=== PATIENT | male | born 1960 | race Asian ===

== ENCOUNTER 2018-04-18 17:58 | Inpatient (IN) | payer MEDICAID ==
[~2018-04-18] VITALS: Ht 170.2 cm; Wt 87.7 kg
[~2018-04-18 17:58] MED LIST: ASPI-1158 PO; ATOR80TA PO; CLOP75TA16 PO; DOCU-138 PO; GABA-531 PO; LOSA50TA3 PO; METO25TA6 PO; OMEP20CA10 PO; ZOLP10TA2 PO
[2018-04-18] MEDS ORDERED: ASPIRIN 325MG EC TABLET PO ONE (18:30)
[2018-04-18 19:38] LABS: BASOPHILS % 0.6 % (0.0-2.0); EOSINOPHILS % 6.8 % (0.0-5.0); HEMATOCRIT. 51.1 % (42.0-52.0); HEMOGLOBIN. 17.1 g/dL (14.0-18.0); LYMPHOCYTES % 19.3 % (20.0-50.0); MEAN CORPUSCULAR HEMOGLOBIN 29.1 pg (28.0-32.0); MEAN CORPUSCULAR VOLUME 86.7 fL (80.0-94.0); MONOCYTES % 6.1 % (2.0-8.0); NEUTROPHILS % 67.2 % (40.0-76.0); PLATELET 204 x1000/uL (130-400); RED BLOOD CELL COUNT 5.89 mill/uL (4.7-6.1)
[2018-04-18 19:40] LABS: CHLORIDE 108 mEq/L (98-107)
[2018-04-18] MEDS ORDERED: MORPHINE SULFATE 4 MG/ML CPJ (NOT FOR IM USE) IV ONE (22:15)
[2018-04-18] MEDS ORDERED: AMLO5TAB88 MT (23:32)
[2018-04-18] MEDS ORDERED: ATEN-42 MT (23:33)
[2018-04-18] MEDS ORDERED: NITR0.4T49 SL (23:35)
[2018-04-18 23:51] VITALS: BP 136/98
[2018-04-19] VITALS (7 sets, daily range): BP systolic 101–140; BP diastolic 64–98
[2018-04-19] MEDS ORDERED: DOCUSATE SODIUM 100MG CAPSULE PO PRN (00:15)
[2018-04-19] MEDS ORDERED: MAGNESIUM/ALUMINUM HYDROXIDE/SIMETHICONE 30ML UDC PO PRN (00:15)
[2018-04-19] MEDS ORDERED: CLONIDINE 0.1MG TABLET PO PRN (00:15)
[2018-04-19] MEDS ORDERED: HYDROCODONE/ACETAMINOPHEN 5/325MG TABLET PO PRN (00:15)
[2018-04-19] MEDS ORDERED: ONDANSETRON HCL 4MG/2ML INJ IV PRN (00:15)
[2018-04-19] MEDS: ACETAMINOPHEN 325MG TABLET PO PRN ×2 (00:36→09:55)
[2018-04-19] MEDS: IPRATROPIUM/ALBUTEROL 0.5-3(2.5)MG/3ML NEB INH PRN (01:08)
[2018-04-19 05:49] LABS: HEMATOCRIT. 45.3 % (42.0-52.0); HEMOGLOBIN. 15.3 g/dL (14.0-18.0); LYMPHOCYTES % 30.6 % (20.0-50.0); MEAN CORPUSCULAR HEMOGLOBIN 29.2 pg (28.0-32.0); MEAN CORPUSCULAR VOLUME 86.5 fL (80.0-94.0); MEAN PLATELET VOLUME 9.7 fl (7.4-10.4); MONOCYTES % 9.3 % (2.0-8.0); NEUTROPHILS % 50.1 % (40.0-76.0); PLATELET 183 x1000/uL (130-400); RED BLOOD CELL COUNT 5.24 mill/uL (4.7-6.1)
[2018-04-19 06:36] LABS: CHLORIDE 108 mEq/L (98-107)
[2018-04-19 06:44] LABS: LDL CHOLESTEROL 94 mg/dL (5-100)
[2018-04-19 06:46] LABS: CREATINE KINASE 167 IU/L (39-308); HDL CHOLESTEROL 31 mg/dL (40-59)
[2018-04-19 06:49] LABS: CREATINE KINASE MB FRACTION 1.7 ng/mL (0.5-3.6)
[2018-04-19 08:46] LABS: *BARBITURATES SCREEN URINE NEGATIVE (NEGATIVE)
[2018-04-19 08:47] LABS: *AMPHETAMINES SCREEN URINE NEGATIVE (NEGATIVE); *BENZODIAZEPINES SCREEN URINE NEGATIVE (NEGATIVE); *COCAINE SCREEN URINE NEGATIVE (NEGATIVE); CANNABINOID URINE SCREEN NEGATIVE (NEGATIVE); METHADONE URINE SCREEN NEGATIVE (NEGATIVE); OPIATES URINE SCREEN NEGATIVE (NEGATIVE); PHENCYCLIDINE URINE SCREEN NEGATIVE (NEGATIVE)
[2018-04-19] MEDS: ASPIRIN 81MG EC TABLET PO SCH (09:55)
[2018-04-19] MEDS: ENOXAPARIN 40MG/0.4ML SYR SUBCUT SCH (09:56)
[2018-04-19] MEDS ORDERED: REGADENOSON 0.4 MG/5 ML IV NR (10:30)
[2018-04-19] MEDS: MORPHINE SULFATE 4 MG/ML CPJ (NOT FOR IM USE) IV PRN ×2 (11:23→22:09)
[2018-04-19] MEDS ORDERED: REGADENOSON 0.4 MG/5 ML IV ONE (11:43)
[2018-04-19] MEDS ORDERED: NITROGLYCERIN 0.4MG TABLET SL SL PRN (12:45)
[2018-04-19] MEDS: CLOPIDOGREL 75MG TABLET PO SCH (13:26)
[2018-04-19] MEDS: NICOTINE 14MG PATCH TD SCH (13:26)
[2018-04-19] MEDS: OMEPRAZOLE 20MG CAPSULE EXTENDED RELEASE PO SCH ×2 (13:26→16:03)
[2018-04-19] MEDS ORDERED: DIATR MEGLU/DIATRIZOATE SOLN 30ML PO SCH (13:45)
[2018-04-19 16:51] LABS: CREATINE KINASE 146 IU/L (39-308)
[2018-04-19 16:54] LABS: CREATINE KINASE MB FRACTION 1.8 ng/mL (0.5-3.6)
[2018-04-19] MEDS ORDERED: DIATR MEGLU/DIATRIZOATE SOLN 120ML ONE (17:52)
[2018-04-19] MEDS: HEMORRHOIDAL SUPP PR SCH (21:15)
[2018-04-19] MEDS: ATORVASTATIN CALCIUM 40MG TABLET PO SCH (21:15)
[2018-04-19] MEDS ORDERED: IOHEXOL-300 100 ML BOTTLE ONE (21:20)
[2018-04-20] VITALS: BP 116/86
[2018-04-20] MEDS: IPRATROPIUM/ALBUTEROL 0.5-3(2.5)MG/3ML NEB INH PRN (03:46)
[2018-04-20 04:00] VITALS: BP 110/56
[2018-04-20 06:16] LABS: BASOPHILS % 0.5 % (0.0-2.0); EOSINOPHILS % 8.6 % (0.0-5.0); HEMATOCRIT. 45.1 % (42.0-52.0); HEMOGLOBIN. 15.4 g/dL (14.0-18.0); LYMPHOCYTES % 43.4 % (20.0-50.0); MEAN CORPUSCULAR HEMOGLOBIN 29.5 pg (28.0-32.0); MEAN CORPUSCULAR VOLUME 86.5 fL (80.0-94.0); MEAN PLATELET VOLUME 10.2 fl (7.4-10.4); MONOCYTES % 6.4 % (2.0-8.0); NEUTROPHILS % 41.1 % (40.0-76.0); PLATELET 180 x1000/uL (130-400); RED BLOOD CELL COUNT 5.22 mill/uL (4.7-6.1); RED CELL DISTRIBUTION WIDTH 13.8 % (11.6-14.6)
[2018-04-20] MEDS: OMEPRAZOLE 20MG CAPSULE EXTENDED RELEASE PO SCH ×2 (06:28→18:36)
[2018-04-20 06:30] LABS: CHLORIDE 108 mEq/L (98-107)
[2018-04-20 06:44] LABS: PHOSPHORUS 3.2 mg/dL (2.5-4.9)
[2018-04-20 08:00] VITALS: BP 117/88
[2018-04-20] MEDS ORDERED: DOCUSATE SODIUM 250MG CAPSULE PO SCH (09:00)
[2018-04-20] MEDS: ASPIRIN 81MG EC TABLET PO SCH (09:52)
[2018-04-20] MEDS: ENOXAPARIN 40MG/0.4ML SYR SUBCUT SCH (09:52)
[2018-04-20] MEDS: HEMORRHOIDAL SUPP PR SCH ×2 (09:52→20:16)
[2018-04-20] MEDS: CLOPIDOGREL 75MG TABLET PO SCH (09:52)
[2018-04-20] MEDS: NICOTINE 14MG PATCH TD SCH (09:53)
[2018-04-20] MEDS ORDERED: BISACODYL 10MG SUPP PR PRN (11:00)
[2018-04-20] MEDS: DOCUSATE SODIUM 100MG CAPSULE PO SCH ×2 (11:00→18:36)
[2018-04-20 12:00] VITALS: BP 126/87
[2018-04-20] MEDS: MORPHINE SULFATE 4 MG/ML CPJ (NOT FOR IM USE) IV PRN ×2 (14:21→20:16)
[2018-04-20 18:00] VITALS: BP 115/85
[2018-04-20 20:00] VITALS: BP 132/92
[2018-04-20] MEDS: ATORVASTATIN CALCIUM 40MG TABLET PO SCH (20:14)
[2018-04-20] MEDS: HYDROCORTISONE ACETATE 25MG SUPP PR SCH (20:15)
[2018-04-21] VITALS: BP 104/68
[2018-04-21] MEDS: IPRATROPIUM/ALBUTEROL 0.5-3(2.5)MG/3ML NEB HHN PRN ×2 (00:07→12:00)
[2018-04-21] MEDS: MORPHINE SULFATE 4 MG/ML CPJ (NOT FOR IM USE) IV PRN ×2 (02:13→10:59)
[2018-04-21 04:00] VITALS: BP 135/57
[2018-04-21] MEDS: IPRATROPIUM/ALBUTEROL 0.5-3(2.5)MG/3ML NEB INH PRN ×2 (04:44→07:34)
[2018-04-21] MEDS: OMEPRAZOLE 20MG CAPSULE EXTENDED RELEASE PO SCH (06:23)
[2018-04-21 07:18] LABS: BASOPHILS % 0.6 % (0.0-2.0); EOSINOPHILS % 6.4 % (0.0-5.0); HEMATOCRIT. 43.5 % (42.0-52.0); HEMOGLOBIN. 15.1 g/dL (14.0-18.0); LYMPHOCYTES % 22.7 % (20.0-50.0); MEAN CORPUSCULAR HEMOGLOBIN 29.6 pg (28.0-32.0); MEAN CORPUSCULAR VOLUME 85.6 fL (80.0-94.0); MEAN PLATELET VOLUME 9.6 fl (7.4-10.4); MONOCYTES % 6.2 % (2.0-8.0); NEUTROPHILS % 64.1 % (40.0-76.0); PLATELET 171 x1000/uL (130-400); RED BLOOD CELL COUNT 5.09 mill/uL (4.7-6.1); RED CELL DISTRIBUTION WIDTH 13.6 % (11.6-14.6)
[2018-04-21 07:48] LABS: CHLORIDE 108 mEq/L (98-107)
[2018-04-21 07:59] LABS: PHOSPHORUS 2.8 mg/dL (2.5-4.9)
[2018-04-21 08:00] VITALS: BP 108/73
[2018-04-21] MEDS: ASPIRIN 81MG EC TABLET PO SCH (09:42)
[2018-04-21] MEDS: CLOPIDOGREL 75MG TABLET PO SCH (09:42)
[2018-04-21] MEDS: DOCUSATE SODIUM 100MG CAPSULE PO SCH (09:42)
[2018-04-21] MEDS: NICOTINE 14MG PATCH TD SCH (09:43)
[2018-04-21] MEDS: ENOXAPARIN 40MG/0.4ML SYR SUBCUT SCH (09:43)
[2018-04-21] MEDS: HYDROCORTISONE ACETATE 25MG SUPP PR SCH (09:44)
[2018-04-21] MEDS: HEMORRHOIDAL SUPP PR SCH (10:21)
[2018-04-21] MEDS ORDERED: OMEP20CA10 PO (12:39)
[2018-04-21] MEDS ORDERED: CLOP75TA16 PO (12:39)
[2018-04-21] MEDS ORDERED: NICO-681 TD (12:39)
[2018-04-21] MEDS ORDERED: ASPI-1158 PO (12:39)
[2018-04-21] MEDS ORDERED: LIP40 PO (12:39)
[2018-04-21] MEDS ORDERED: [UNRECOGNIZED DRUG - CODE] PR (12:39)
[2018-04-21] MEDS ORDERED: HYDR25SU11 PR (12:39)
[2018-04-21 15:06] VITALS: BP 106/88
== END 2018-04-21 15:59 | disposition home or self-care (01) | DRG 254 ==
LOC: ER 17:58 → 5WST 20:02 → EDBEDREQ 20:04 → ENRESERV 20:09
PROVIDERS: ADMIT Internal Medicine; ATTEND Internal Medicine
DX: K62.89 Other specified diseases of anus and rectum (principal); I51.0 Cardiac septal defect, acquired; R13.10 Dysphagia, unspecified; I25.10 Atherosclerotic heart disease of native coronary artery without angina pectoris; E78.5 Hyperlipidemia, unspecified; I10 Essential (primary) hypertension; K21.9 Gastro-esophageal reflux disease without esophagitis; J44.9 Chronic obstructive pulmonary disease, unspecified; F17.210 Nicotine dependence, cigarettes, uncomplicated; G47.00 Insomnia, unspecified; K59.00 Constipation, unspecified; K80.20 Calculus of gallbladder without cholecystitis without obstruction; Z82.49 Family history of ischemic heart disease and other diseases of the circulatory system; Z90.49 Acquired absence of other specified parts of digestive tract; Z95.5 Presence of coronary angioplasty implant and graft; Z98.1 Arthrodesis status; Z79.82 Long term (current) use of aspirin; Z79.899 Other long term (current) drug therapy; Z79.02 Long term (current) use of antithrombotics/antiplatelets; Z88.8 Allergy status to other drugs, medicaments and biological substances; Z71.6 Tobacco abuse counseling
CPT/HCPCS: 36415; 71045; 74177; 78452; 80048; 80053; 80061; 80305; 82550; 82553; 83735; 83880; 84100; 84443; 84484; 85025; 85379; 92610; 93005; 93017; 93970; 94640; 96374; 99285; A9500; G0482; J1650; J2270; J2785; J7620; Q9963; Q9967

== ENCOUNTER 2018-07-27 18:25 | Inpatient (IN) | payer MEDICAID ==
[~2018-07-27] VITALS: Ht 170.2 cm; Wt 88.5 kg
[~2018-07-27 18:25] MED LIST changes: -ATOR80TA PO; -DOCU-138 PO; -GABA-531 PO; +HYDR25SU11 PR; +LIP40 PO; -LOSA50TA3 PO; -METO25TA6 PO; +NICO-681 TD; -ZOLP10TA2 PO; +[UNRECOGNIZED DRUG - CODE] PR
[2018-07-27] MEDS ORDERED: LOSA50TA20 PO (18:38)
[2018-07-27] MEDS ORDERED: METO-396 PO (18:38)
[2018-07-28] MEDS ORDERED: MORPHINE SULFATE 4 MG/ML CPJ (NOT FOR IM USE) IV STA (01:55)
[2018-07-28] MEDS ORDERED: ONDANSETRON HCL 4MG/2ML INJ IV STA (01:55)
[2018-07-28] MEDS ORDERED: SODIUM CHLORIDE 0.9% 1,000 ML IV ONE (01:55)
[2018-07-28 02:17] LABS: BASOPHILS % 0.5 % (0.0-2.0); EOSINOPHILS % 6.3 % (0.0-5.0); HEMATOCRIT. 49.8 % (42.0-52.0); HEMOGLOBIN. 16.8 g/dL (14.0-18.0); LYMPHOCYTES % 21.5 % (20.0-50.0); MEAN CORPUSCULAR HEMOGLOBIN 28.4 pg (28.0-32.0); MEAN CORPUSCULAR VOLUME 84.6 fL (80.0-94.0); MEAN PLATELET VOLUME 9.2 fl (7.4-10.4); MONOCYTES % 6.9 % (2.0-8.0); NEUTROPHILS % 64.8 % (40.0-76.0); PLATELET 224 x1000/uL (130-400); RED BLOOD CELL COUNT 5.89 mill/uL (4.7-6.1); RED CELL DISTRIBUTION WIDTH 13.7 % (11.6-14.6)
[2018-07-28 02:18] LABS: CHLORIDE 107 mEq/L (98-107)
[2018-07-28 02:19] LABS: PROTHROMBIN TIME 10.4 sec (9.1-11.1)
[2018-07-28 03:51] LABS: CLARITY URINE CLEAR (CLEAR); COLOR URINE YELLOW (YELLOW); KETONES URINE TRACE (NEGATIVE); LEUKOCYTE ESTERASE URINE NEGATIVE (NEGATIVE); NITRITE URINE NEGATIVE (NEGATIVE); OCCULT BLOOD URINE TRACE (NEGATIVE); PROTEIN URINE NEGATIVE (NEGATIVE); UROBILINOGEN URINE 0.2 E.U./dL (0.2-1.0)
[2018-07-28] MEDS ORDERED: IOHEXOL-300 100 ML BOTTLE ONE (04:13)
[2018-07-28 08:00] VITALS: BP 102/72
[2018-07-28] MEDS: HYDROMORPHONE HCL/PF 2MG/ML CPJ IV PRN ×3 (09:56→22:36)
[2018-07-28] MEDS ORDERED: ACETAMINOPHEN 325MG TABLET PO PRN (11:15)
[2018-07-28] MEDS ORDERED: ONDANSETRON HCL 4MG/2ML INJ IV PRN (11:15)
[2018-07-28 11:30] VITALS: BP 138/96
[2018-07-28 12:00] VITALS: BP 106/71
[2018-07-28] MEDS ORDERED: IPRATROPIUM/ALBUTEROL 0.5-3(2.5)MG/3ML NEB INH PRN (12:00)
[2018-07-28] MEDS: PANTOPRAZOLE SODIUM 40 MG/VIAL IV SCH (12:52)
[2018-07-28] MEDS: CLOPIDOGREL 75MG TABLET PO SCH (12:52)
[2018-07-28] MEDS: ASPIRIN 81MG TABLET PO SCH (12:52)
[2018-07-28] MEDS: LOSARTAN POTASSIUM 50 MG TABLET PO SCH (12:52)
[2018-07-28] MEDS: NICOTINE 14MG PATCH TD SCH (12:53)
[2018-07-28 16:36] VITALS: BP 104/65
[2018-07-28] MEDS ORDERED: OMEPRAZOLE 20MG CAPSULE EXTENDED RELEASE PO SCH (17:10)
[2018-07-28] MEDS: HYDROCODONE/ACETAMINOPHEN 5/325MG TABLET PO PRN (18:50)
[2018-07-28 20:00] VITALS: BP 101/67
[2018-07-28] MEDS: METOPROLOL TARTRATE 25MG TABLET PO SCH (21:00)
[2018-07-28 21:25] LABS: CREATINE KINASE 77 IU/L (39-308)
[2018-07-28 21:27] LABS: CREATINE KINASE MB FRACTION < 1.0 ng/mL (0.5-3.6)
[2018-07-28] MEDS: ATORVASTATIN CALCIUM 40MG TABLET PO SCH (21:36)
[2018-07-29] VITALS (7 sets, daily range): BP systolic 92–109; BP diastolic 57–81
[2018-07-29 06:48] LABS: BASOPHILS % 0.6 % (0.0-2.0); EOSINOPHILS % 9.9 % (0.0-5.0); HEMATOCRIT. 41.6 % (42.0-52.0); HEMOGLOBIN. 14.1 g/dL (14.0-18.0); LYMPHOCYTES % 22.9 % (20.0-50.0); MEAN CORPUSCULAR HEMOGLOBIN 28.5 pg (28.0-32.0); MEAN CORPUSCULAR VOLUME 84.3 fL (80.0-94.0); MEAN PLATELET VOLUME 9.1 fl (7.4-10.4); MONOCYTES % 7.9 % (2.0-8.0); NEUTROPHILS % 58.7 % (40.0-76.0); PLATELET 189 x1000/uL (130-400); RED BLOOD CELL COUNT 4.94 mill/uL (4.7-6.1); RED CELL DISTRIBUTION WIDTH 13.8 % (11.6-14.6)
[2018-07-29 06:49] LABS: CHLORIDE 108 mEq/L (98-107)
[2018-07-29] MEDS: METOPROLOL TARTRATE 25MG TABLET PO SCH ×2 (09:00→20:18)
[2018-07-29] MEDS: LOSARTAN POTASSIUM 50 MG TABLET PO SCH (09:00)
[2018-07-29] MEDS ORDERED: INFLUENZA VIRUS VACCINE(AFLURIA) 0.5ML SYR IM ONE (09:00)
[2018-07-29] MEDS: ASPIRIN 81MG TABLET PO SCH (09:10)
[2018-07-29] MEDS: PANTOPRAZOLE SODIUM 40 MG/VIAL IV SCH (09:10)
[2018-07-29] MEDS: CLOPIDOGREL 75MG TABLET PO SCH (09:11)
[2018-07-29] MEDS: NICOTINE 14MG PATCH TD SCH (09:11)
[2018-07-29] MEDS ORDERED: PNEUMOCOCCAL 23-VAL P-SAC VAC 0.5 ML IM ONE (10:00)
[2018-07-29 11:14] LABS: *AMPHETAMINES SCREEN URINE NEGATIVE (NEGATIVE); *BARBITURATES SCREEN URINE NEGATIVE (NEGATIVE); CANNABINOID URINE SCREEN NEGATIVE (NEGATIVE)
[2018-07-29 11:15] LABS: *BENZODIAZEPINES SCREEN URINE NEGATIVE (NEGATIVE); *COCAINE SCREEN URINE NEGATIVE (NEGATIVE); METHADONE URINE SCREEN NEGATIVE (NEGATIVE); OPIATES URINE SCREEN NEGATIVE (NEGATIVE)
[2018-07-29 11:16] LABS: PHENCYCLIDINE URINE SCREEN NEGATIVE (NEGATIVE)
[2018-07-29] MEDS: HYDROMORPHONE HCL/PF 2MG/ML CPJ IV PRN ×2 (13:52→23:24)
[2018-07-29] MEDS: ALPRAZOLAM 0.25 MG TABLET PO PRN (16:46)
[2018-07-29] MEDS: ATORVASTATIN CALCIUM 40MG TABLET PO SCH (20:59)
[2018-07-29] MEDS: HYDROCODONE/ACETAMINOPHEN 5/325MG TABLET PO PRN (21:00)
[2018-07-30] VITALS: BP 110/74
[2018-07-30] MEDS: ALPRAZOLAM 0.25 MG TABLET PO PRN (00:52)
[2018-07-30 04:00] VITALS: BP_SYST 109; BP_SYST 112; BP_DIAS 68; BP_DIAS 72
[2018-07-30] MEDS: HYDROMORPHONE HCL/PF 2MG/ML CPJ IV PRN ×2 (06:26→11:59)
[2018-07-30 08:00] VITALS: BP 110/74
[2018-07-30] MEDS: LOSARTAN POTASSIUM 50 MG TABLET PO SCH (08:13)
[2018-07-30] MEDS: ASPIRIN 81MG TABLET PO SCH (08:13)
[2018-07-30] MEDS: NICOTINE 14MG PATCH TD SCH (08:14)
[2018-07-30] MEDS: METOPROLOL TARTRATE 25MG TABLET PO SCH (08:14)
[2018-07-30] MEDS: FAMOTIDINE 20MG TABLET PO SCH ×2 (08:14→17:52)
[2018-07-30] MEDS: CLOPIDOGREL 75MG TABLET PO SCH (08:14)
[2018-07-30 10:04] LABS: CHLORIDE 109 mEq/L (98-107)
[2018-07-30 10:05] LABS: BASOPHILS % 0.7 % (0.0-2.0); EOSINOPHILS % 12.2 % (0.0-5.0); HEMATOCRIT. 42.3 % (42.0-52.0); HEMOGLOBIN. 14.4 g/dL (14.0-18.0); LYMPHOCYTES % 24.9 % (20.0-50.0); MEAN CORPUSCULAR HEMOGLOBIN 28.7 pg (28.0-32.0); MEAN CORPUSCULAR VOLUME 84.4 fL (80.0-94.0); MEAN PLATELET VOLUME 9.3 fl (7.4-10.4); MONOCYTES % 8.5 % (2.0-8.0); NEUTROPHILS % 53.7 % (40.0-76.0); PLATELET 186 x1000/uL (130-400); RED BLOOD CELL COUNT 5.02 mill/uL (4.7-6.1); RED CELL DISTRIBUTION WIDTH 13.9 % (11.6-14.6)
[2018-07-30 12:00] VITALS: BP 120/81
[2018-07-30 14:00] VITALS: BP 109/74
[2018-07-30] MEDS: METRONIDAZOLE 500 MG PREMIX 100 ML IV SCH (16:00)
[2018-07-30] MEDS: LEVOFLOXACIN 500MG PREMIX 100 ML IV SCH (16:30)
[2018-07-31] VITALS (7 sets, daily range): BP systolic 108–127; BP diastolic 60–89
[2018-07-31] MEDS: HYDROMORPHONE HCL/PF 2MG/ML CPJ IV PRN ×3 (00:51→23:10)
[2018-07-31] MEDS: METRONIDAZOLE 500 MG PREMIX 100 ML IV SCH ×4 (00:52→23:09)
[2018-07-31] MEDS: ALPRAZOLAM 0.25 MG TABLET PO PRN ×2 (01:13→23:09)
[2018-07-31] MEDS: ATORVASTATIN CALCIUM 40MG TABLET PO SCH ×2 (01:13→21:44)
[2018-07-31] MEDS: METOPROLOL TARTRATE 25MG TABLET PO SCH ×3 (01:13→21:00)
[2018-07-31] MEDS: LOSARTAN POTASSIUM 50 MG TABLET PO SCH (09:00)
[2018-07-31] MEDS: ASPIRIN 81MG TABLET PO SCH (09:06)
[2018-07-31] MEDS: CLOPIDOGREL 75MG TABLET PO SCH (09:06)
[2018-07-31] MEDS: FAMOTIDINE 20MG TABLET PO SCH ×2 (09:06→17:42)
[2018-07-31] MEDS: NICOTINE 14MG PATCH TD SCH (09:07)
[2018-07-31] MEDS: LEVOFLOXACIN 500MG PREMIX 100 ML IV SCH (17:43)
[2018-08-01] VITALS: BP 99/74
[2018-08-01 04:00] VITALS: BP 113/80
[2018-08-01 08:00] VITALS: BP 125/86
[2018-08-01 08:07] LABS: BASOPHILS % 0.5 % (0.0-2.0); HEMATOCRIT. 42.1 % (42.0-52.0); HEMOGLOBIN. 14.4 g/dL (14.0-18.0); MEAN CORPUSCULAR HEMOGLOBIN 28.6 pg (28.0-32.0); MEAN CORPUSCULAR VOLUME 84.1 fL (80.0-94.0); MEAN PLATELET VOLUME 9.3 fl (7.4-10.4); MONOCYTES % 8.8 % (2.0-8.0); NEUTROPHILS % 59.7 % (40.0-76.0); PLATELET 189 x1000/uL (130-400); RED BLOOD CELL COUNT 5.01 mill/uL (4.7-6.1); RED CELL DISTRIBUTION WIDTH 13.5 % (11.6-14.6)
[2018-08-01 08:28] LABS: CHLORIDE 109 mEq/L (98-107)
[2018-08-01] MEDS: METOPROLOL TARTRATE 25MG TABLET PO SCH ×2 (09:00→09:26)
[2018-08-01] MEDS: LOSARTAN POTASSIUM 50 MG TABLET PO SCH ×2 (09:00→09:25)
[2018-08-01] MEDS: METRONIDAZOLE 500 MG PREMIX 100 ML IV SCH ×2 (09:24→16:35)
[2018-08-01] MEDS: FAMOTIDINE 20MG TABLET PO SCH (09:25)
[2018-08-01] MEDS: ASPIRIN 81MG TABLET PO SCH (09:26)
[2018-08-01] MEDS: CLOPIDOGREL 75MG TABLET PO SCH (09:26)
[2018-08-01] MEDS: NICOTINE 14MG PATCH TD SCH (09:27)
[2018-08-01] MEDS: HYDROCODONE/ACETAMINOPHEN 5/325MG TABLET PO PRN (09:38)
[2018-08-01] MEDS: ALPRAZOLAM 0.25 MG TABLET PO PRN ×2 (10:57→20:10)
[2018-08-01 16:00] VITALS: BP 112/89
[2018-08-01] MEDS: LEVOFLOXACIN 500MG PREMIX 100 ML IV SCH (16:36)
[2018-08-01] MEDS ORDERED: PANTOPRAZOLE SODIUM 40 MG/VIAL IV SCH (17:00)
[2018-08-01] MEDS ORDERED: DOCUSATE SODIUM 100MG CAPSULE PO SCH (17:00)
[2018-08-01] MEDS ORDERED: METR250T36 MT (17:43)
[2018-08-01] MEDS ORDERED: LEVO750T46 MT (17:43)
[2018-08-01] MEDS ORDERED: L.AC1CAP6 MT (17:43)
[2018-08-01] MEDS ORDERED: ACET-2178 PO (17:43)
[2018-08-01] MEDS ORDERED: PANT40TA4 MT (17:43)
[2018-08-01 19:58] VITALS: BP 133/94
[2018-08-01 20:00] VITALS: BP 133/94
== END 2018-08-01 21:25 | disposition home or self-care (01) | DRG 248 ==
LOC: ER 18:25 → 8WST 07-28 06:55 → ENRESERV 07-28 07:56
PROVIDERS: ADMIT Internal Medicine; ATTEND Internal Medicine
DX: A04.9 Bacterial intestinal infection, unspecified (principal); R18.8 Other ascites; I11.9 Hypertensive heart disease without heart failure; N28.1 Cyst of kidney, acquired; K80.20 Calculus of gallbladder without cholecystitis without obstruction; A08.4 Viral intestinal infection, unspecified; K76.0 Fatty (change of) liver, not elsewhere classified; K29.70 Gastritis, unspecified, without bleeding; E78.5 Hyperlipidemia, unspecified; K21.9 Gastro-esophageal reflux disease without esophagitis; F17.210 Nicotine dependence, cigarettes, uncomplicated; I25.10 Atherosclerotic heart disease of native coronary artery without angina pectoris; Q21.9 Congenital malformation of cardiac septum, unspecified; Z79.02 Long term (current) use of antithrombotics/antiplatelets; Z79.82 Long term (current) use of aspirin; Z82.49 Family history of ischemic heart disease and other diseases of the circulatory system; Z90.89 Acquired absence of other organs; Z95.5 Presence of coronary angioplasty implant and graft; Z98.1 Arthrodesis status; Z79.899 Other long term (current) drug therapy; Z88.8 Allergy status to other drugs, medicaments and biological substances; I25.2 Old myocardial infarction
CPT/HCPCS: 36415; 71045; 74018; 74177; 80048; 80305; 82270; 82550; 82553; 83605; 83735; 84100; 84145; 84484; 90686; 93005; 93306; 96361; 96374; 96375; 99285; C9113; J1170; J1956; J2270; J2405; J3490; J7030; J7040; Q9967

== ENCOUNTER 2021-08-11 18:25 | Emergency (ER) | payer MEDICAID, OTHER ==
[~2021-08-11] VITALS: Ht 170.2 cm; Wt 90.0 kg
[~2021-08-11 18:25] MED LIST changes: -ASPI-1158 PO; +ASPI-1406 PO; +CLOP-31 PO; -CLOP75TA16 PO; +L.AC1CAP6 MT; +LOSA50TA41 PO; +METO-396 PO; -NICO-681 TD; -OMEP20CA10 PO; +TOPUD PO
[2021-08-11] MEDS ORDERED: ACETAMINOPHEN 325MG TABLET PO ONE (19:45)
[2021-08-11] MEDS ORDERED: ALBUTEROL 6.7GM HFA INHALER ORI ONE (19:45)
[2021-08-11 20:04] LABS: BASOPHILS % 0.3 % (0.0-2.0); EOSINOPHILS % 0.2 % (0.0-5.0); HEMATOCRIT. 49.1 % (42.0-52.0); LYMPHOCYTES % 27.1 % (20.0-50.0); MEAN CORPUSCULAR HEMOGLOBIN 27.8 pg (28.0-32.0); MEAN CORPUSCULAR VOLUME 85.5 fL (80.0-94.0); MEAN PLATELET VOLUME 9.3 fl (7.4-10.4); MONOCYTES % 6.8 % (2.0-8.0); NEUTROPHILS % 65.6 % (40.0-76.0); PLATELET 146 x1000/uL (130-400); RED BLOOD CELL COUNT 5.75 mill/uL (4.7-6.1); RED CELL DISTRIBUTION WIDTH 13.6 % (11.6-14.6)
[2021-08-11 20:08] LABS: CHLORIDE 107 mEq/L (98-107)
[2021-08-11 20:13] LABS: ETHANOL BLOOD < 10 mg/dL
[2021-08-11 20:27] LABS: *BARBITURATES SCREEN URINE NEGATIVE (NEGATIVE)
[2021-08-11 20:28] LABS: *BENZODIAZEPINES SCREEN URINE NEGATIVE (NEGATIVE); *COCAINE SCREEN URINE NEGATIVE (NEGATIVE); METHADONE URINE SCREEN NEGATIVE (NEGATIVE); OPIATES URINE SCREEN NEGATIVE (NEGATIVE); PHENCYCLIDINE URINE SCREEN NEGATIVE (NEGATIVE)
[2021-08-11 20:29] LABS: *AMPHETAMINES SCREEN URINE NEGATIVE (NEGATIVE); CANNABINOID URINE SCREEN NEGATIVE (NEGATIVE)
[2021-08-11 21:59] VITALS: BP 96/67
[2021-08-11] MEDS ORDERED: ACET-2708 MT (22:19)
[2021-08-11] MEDS ORDERED: GUAI-453 MT (22:19)
[2021-08-11] MEDS ORDERED: ALBU6.7H9 INH (22:19)
== END 2021-08-11 22:46 | disposition home or self-care (01) ==
LOC: ER 18:25
DX: U07.1 COVID-19 (principal); B34.9 Viral infection, unspecified; E78.00 Pure hypercholesterolemia, unspecified; I10 Essential (primary) hypertension; Z13.9 Encounter for screening, unspecified; Z88.5 Allergy status to narcotic agent; Z88.6 Allergy status to analgesic agent; Z79.899 Other long term (current) drug therapy; Z90.49 Acquired absence of other specified parts of digestive tract
CPT/HCPCS: 36415; 71045; 80053; 80305; 80320; 83880; 84484; 85025; 87426; 87804; 93005; 99285; G0480

== ENCOUNTER 2021-11-24 13:48 | Inpatient (IN) | payer MEDICAID, OTHER ==
[~2021-11-24] VITALS: Ht 172.7 cm; Wt 90.0 kg
[~2021-11-24 13:48] MED LIST changes: +ACET-2708 MT; +ALBU6.7H9 INH; +GUAI-453 MT
[2021-11-24 14:42] LABS: BASOPHILS % 0.9 % (0.0-2.0); EOSINOPHILS % 8.8 % (0.0-5.0); HEMATOCRIT. 45.5 % (42.0-52.0); HEMOGLOBIN. 15.3 g/dL (14.0-18.0); LYMPHOCYTES % 28.8 % (20.0-50.0); MEAN CORPUSCULAR HEMOGLOBIN 28.5 pg (28.0-32.0); MEAN CORPUSCULAR VOLUME 84.7 fL (80.0-94.0); MEAN PLATELET VOLUME 8.8 fl (7.4-10.4); MONOCYTES % 7.9 % (2.0-8.0); NEUTROPHILS % 53.6 % (40.0-76.0); PLATELET 192 x1000/uL (130-400); RED BLOOD CELL COUNT 5.37 mill/uL (4.7-6.1)
[2021-11-24 14:54] LABS: CHLORIDE 113 mEq/L (98-107)
[2021-11-24 21:15] VITALS: BP 142/90
[2021-11-24] MEDS ORDERED: METO-396 MT (23:00)
[2021-11-24] MEDS ORDERED: OMEP20CA14 MT (23:00)
[2021-11-24] MEDS ORDERED: GABA-533 MT (23:00)
[2021-11-24] MEDS ORDERED: ZOLPIDEM TARTRATE 5MG TABLET PO PRN (23:15)
[2021-11-24] MEDS: HYDROCODONE/ACETAMINOPHEN 5/325MG TABLET PO PRN (23:47)
[2021-11-25] VITALS: BP 132/99
[2021-11-25 04:00] VITALS: BP 124/85
[2021-11-25] MEDS: GABAPENTIN 400MG CAPSULE PO SCH ×3 (05:06→21:46)
[2021-11-25 08:00] VITALS: BP 127/90
[2021-11-25 08:16] LABS: BASOPHILS % 0.4 % (0.0-2.0); EOSINOPHILS % 8.8 % (0.0-5.0); HEMATOCRIT. 44.7 % (42.0-52.0); HEMOGLOBIN. 15.2 g/dL (14.0-18.0); LYMPHOCYTES % 30.3 % (20.0-50.0); MEAN CORPUSCULAR HEMOGLOBIN 28.8 pg (28.0-32.0); MEAN CORPUSCULAR VOLUME 84.4 fL (80.0-94.0); MEAN PLATELET VOLUME 9.4 fl (7.4-10.4); MONOCYTES % 8.4 % (2.0-8.0); NEUTROPHILS % 52.1 % (40.0-76.0); PLATELET 189 x1000/uL (130-400); RED CELL DISTRIBUTION WIDTH 14.4 % (11.6-14.6)
[2021-11-25 08:20] LABS: CHLORIDE 113 mEq/L (98-107)
[2021-11-25] MEDS: METOPROLOL TARTRATE 25MG TABLET PO SCH ×2 (08:44→21:00)
[2021-11-25] MEDS: CLOPIDOGREL 75MG TABLET PO SCH (08:44)
[2021-11-25] MEDS: OMEPRAZOLE 20MG CAPSULE EXTENDED RELEASE PO SCH (08:44)
[2021-11-25] MEDS: LOSARTAN POTASSIUM 50 MG TABLET PO SCH (08:44)
[2021-11-25] MEDS ORDERED: ENOXAPARIN 100MG/ML SYR SUBCUT NR (11:45)
[2021-11-25] MEDS: ASPIRIN 81MG TABLET PO SCH (11:59)
[2021-11-25 12:00] VITALS: BP 128/84
[2021-11-25 16:00] VITALS: BP 132/86
[2021-11-25 18:55] LABS: CLARITY URINE CLEAR (CLEAR); COLOR URINE YELLOW (YELLOW); KETONES URINE NEGATIVE (NEGATIVE); LEUKOCYTE ESTERASE URINE NEGATIVE (NEGATIVE); NITRITE URINE NEGATIVE (NEGATIVE); OCCULT BLOOD URINE NEGATIVE (NEGATIVE); PROTEIN URINE NEGATIVE (NEGATIVE); SPECIFIC GRAVITY URINE 1.014 (1.005-1.030); UROBILINOGEN URINE 0.2 E.U./dL (0.2-1.0)
[2021-11-25 19:07] LABS: *AMPHETAMINES SCREEN URINE NEGATIVE (NEGATIVE); *BARBITURATES SCREEN URINE NEGATIVE (NEGATIVE); *BENZODIAZEPINES SCREEN URINE NEGATIVE (NEGATIVE); *COCAINE SCREEN URINE NEGATIVE (NEGATIVE); CANNABINOID URINE SCREEN NEGATIVE (NEGATIVE); METHADONE URINE SCREEN NEGATIVE (NEGATIVE); OPIATES URINE SCREEN PRESUMTIVE POSITIVE (NEGATIVE); PHENCYCLIDINE URINE SCREEN NEGATIVE (NEGATIVE)
[2021-11-25 20:00] VITALS: BP 107/66
[2021-11-25] MEDS: ATORVASTATIN CALCIUM 40MG TABLET PO SCH (20:17)
[2021-11-25] MEDS: HYDROCODONE/ACETAMINOPHEN 5/325MG TABLET PO PRN (20:20)
[2021-11-25] MEDS ORDERED: DOCUSATE SODIUM 250MG CAPSULE PO PRN (22:00)
[2021-11-26] VITALS (7 sets, daily range): BP systolic 118–144; BP diastolic 64–91
[2021-11-26] MEDS: GABAPENTIN 400MG CAPSULE PO SCH ×3 (05:45→21:51)
[2021-11-26] MEDS: HYDROCODONE/ACETAMINOPHEN 5/325MG TABLET PO PRN ×2 (06:10→22:12)
[2021-11-26] MEDS: ASPIRIN 81MG TABLET PO SCH ×2 (07:54→17:35)
[2021-11-26] MEDS: METOPROLOL TARTRATE 25MG TABLET PO SCH ×2 (07:55→21:50)
[2021-11-26] MEDS: LOSARTAN POTASSIUM 50 MG TABLET PO SCH (07:55)
[2021-11-26] MEDS: CLOPIDOGREL 75MG TABLET PO SCH (07:56)
[2021-11-26] MEDS: OMEPRAZOLE 20MG CAPSULE EXTENDED RELEASE PO SCH (07:57)
[2021-11-26] MEDS ORDERED: NICARDIPINE 100MCG/ML 10ML VIAL (CATH LAB) IV ONE (09:23)
[2021-11-26] MEDS ORDERED: HEPARIN SODIUM 1,000 UNIT/1ML VIAL IV ONE (09:23)
[2021-11-26] MEDS ORDERED: NITROGLYCERIN 50MCG/ML 10ML VIAL (CATH LAB) IV ONE (09:23)
[2021-11-26] MEDS ORDERED: MIDAZOLAM HCL 2 MG/2 ML VIAL ONE ×2 (12:40→14:17)
[2021-11-26] MEDS ORDERED: LIDOCAINE HCL 1% 20ML VIAL (Pyxis) INJ ONE (12:40)
[2021-11-26] MEDS ORDERED: IODIXANOL 320MG/ML 100 ML BOTTLE IV ONE ×2 (12:40→13:44)
[2021-11-26] MEDS ORDERED: FENTANYL CITRATE/PF 50MCG/ML 2ML VIAL ONE (12:41)
[2021-11-26] MEDS ORDERED: IOHEXOL-300 100 ML BOTTLE ONE (13:20)
[2021-11-26] MEDS ORDERED: ASPIRIN/SOD BICARB/CITRIC ACID 324MG TAB EFF ONE (13:23)
[2021-11-26] MEDS ORDERED: CLOPIDOGREL 75MG TABLET ONE ×2 (13:23→14:40)
[2021-11-26] MEDS ORDERED: ATROPINE SULFATE 1MG/10ML SYR IV PRN (15:00)
[2021-11-26] MEDS ORDERED: ACETAMINOPHEN 325MG TABLET PO PRN (15:00)
[2021-11-26] MEDS: ATORVASTATIN CALCIUM 40MG TABLET PO SCH (21:49)
[2021-11-27] VITALS (8 sets, daily range): BP systolic 101–135; BP diastolic 62–89
[2021-11-27] MEDS: HYDROCODONE/ACETAMINOPHEN 5/325MG TABLET PO PRN (02:07)
[2021-11-27 05:48] LABS: BASOPHILS % 0.5 % (0.0-2.0); EOSINOPHILS % 5.8 % (0.0-5.0); HEMATOCRIT. 45.1 % (42.0-52.0); HEMOGLOBIN. 15.5 g/dL (14.0-18.0); LYMPHOCYTES % 27.6 % (20.0-50.0); MEAN CORPUSCULAR HEMOGLOBIN 28.9 pg (28.0-32.0); MEAN CORPUSCULAR VOLUME 83.8 fL (80.0-94.0); MONOCYTES % 8.2 % (2.0-8.0); NEUTROPHILS % 57.9 % (40.0-76.0); PLATELET 211 x1000/uL (130-400); RED BLOOD CELL COUNT 5.38 mill/uL (4.7-6.1); RED CELL DISTRIBUTION WIDTH 14.4 % (11.6-14.6)
[2021-11-27] MEDS: GABAPENTIN 400MG CAPSULE PO SCH ×2 (06:09→14:09)
[2021-11-27 06:21] LABS: CHLORIDE 107 mEq/L (98-107)
[2021-11-27] MEDS: CLOPIDOGREL 75MG TABLET PO SCH (08:10)
[2021-11-27] MEDS: LOSARTAN POTASSIUM 50 MG TABLET PO SCH (08:10)
[2021-11-27] MEDS: METOPROLOL TARTRATE 25MG TABLET PO SCH (08:11)
[2021-11-27] MEDS: ASPIRIN 81MG TABLET PO SCH (08:11)
[2021-11-27] MEDS ORDERED: FAMOTIDINE 20MG TABLET PO SCH (09:00)
== END 2021-11-27 15:00 | disposition home or self-care (01) | DRG 175 ==
LOC: ER 13:48 → 8WST 17:45 → ENRESERV 19:30 → 5EST 11-26 15:14
PROVIDERS: ADMIT Internal Medicine; ATTEND Internal Medicine
PROC: 4A023N7 Measurement of Cardiac Sampling and Pressure, Left Heart, Percutaneous Approach (ICD-10-PCS; principal; 2021-11-26)
PROC: 027036Z Dilation of Coronary Artery, One Artery with Three Drug-eluting Intraluminal Devices, Percutaneous Approach (ICD-10-PCS; 2021-11-26)
PROC: B2111ZZ Fluoroscopy of Multiple Coronary Arteries using Low Osmolar Contrast (ICD-10-PCS; 2021-11-26)
DX: I25.110 Atherosclerotic heart disease of native coronary artery with unstable angina pectoris (principal); I21.4 Non-ST elevation (NSTEMI) myocardial infarction; E87.8 Other disorders of electrolyte and fluid balance, not elsewhere classified; E66.9 Obesity, unspecified; M94.0 Chondrocostal junction syndrome [Tietze]; E78.00 Pure hypercholesterolemia, unspecified; E78.5 Hyperlipidemia, unspecified; I10 Essential (primary) hypertension; Z20.822 Contact with and (suspected) exposure to COVID-19; F41.9 Anxiety disorder, unspecified; Z79.02 Long term (current) use of antithrombotics/antiplatelets; Z79.82 Long term (current) use of aspirin; Z79.899 Other long term (current) drug therapy; Z87.891 Personal history of nicotine dependence; Z95.5 Presence of coronary angioplasty implant and graft; Z88.5 Allergy status to narcotic agent; Z88.8 Allergy status to other drugs, medicaments and biological substances; Z79.1 Long term (current) use of non-steroidal anti-inflammatories (NSAID); Z90.49 Acquired absence of other specified parts of digestive tract; Z82.49 Family history of ischemic heart disease and other diseases of the circulatory system; Z68.30 Body mass index [BMI] 30.0-30.9, adult
CPT/HCPCS: 36415; 71045; 80048; 80053; 80305; 81003; 83880; 84484; 85025; 85347; 87426; 92928; 93005; 93306; 93458; 99285; C1769; C1874; C1887; C1893; J1644; J1650; J2250; J3010; J3490; Q9967

== ENCOUNTER 2023-11-23 00:41 | Emergency (ER) | payer MEDICAID, OTHER ==
[~2023-11-23] VITALS: Ht 170.2 cm; Wt 114.0 kg
[~2023-11-23 00:41] MED LIST changes: +ALBU6.7H3 INH; -ALBU6.7H9 INH; +ASPI-986 MT; +CLON0.5T23 PO; +GABA-532 PO; +GABA-534 MT; +METO-396 MT; +OMEP20CA14 MT
[2023-11-23 00:52] VITALS: O2SAT 98
[2023-11-23] MEDS ORDERED: GABA-529 MT (06:44)
[2023-11-23] MEDS ORDERED: KETO15CR2 TP (06:44)
[2023-11-23 07:00] VITALS: BP 137/96; PULSE 84; RESP 16; TEMP 98.6
== END 2023-11-23 07:05 | disposition home or self-care (01) ==
LOC: ER 00:41
DX: G62.9 Polyneuropathy, unspecified (principal); B35.3 Tinea pedis; F41.9 Anxiety disorder, unspecified; I25.10 Atherosclerotic heart disease of native coronary artery without angina pectoris; E78.00 Pure hypercholesterolemia, unspecified; I10 Essential (primary) hypertension; I25.2 Old myocardial infarction; Z79.899 Other long term (current) drug therapy
CPT/HCPCS: 99281